=== PATIENT | male | born 1965 | race Caucasian/White ===

== ENCOUNTER 2017-09-02 07:10 | Emergency (ER) | payer SELFPAY ==
--- NOTE | 2017-09-02 08:10 | C.PDOC ---
History Of Present Illness 51 y/o male presents to ED with complaints of epigastric pain since 4am this morning. Pt describes the pain as "inflammation". Pain was intermittent. Patient denies nausea, vomiting, diarrhea, fever or any other complaints at this time. Pt denies any chest pain or sob. Normal BM. He took unknown pain medication without relief. Pt has had the same symptoms in the past and was diagnosed with gallstones via ultasound. Time Seen by Provider: 09/02/17 07:32 Chief Complaint (Nursing): Abdominal Pain History Per: Patient, Electro Mechanic History/Exam Limitations: no limitations Onset/Duration Of Symptoms: Days Current Symptoms Are (Timing): Still Present Location Of Pain/Discomfort: Epigastric Past Medical History Reviewed: Historical Data, Nursing Documentation, Vital Signs Vital Signs: Last Vital Signs Temp 98.2 F 09/02/17 11:10 Pulse 63 09/02/17 11:10 Resp 20 09/02/17 11:10 BP 103/50 L 09/02/17 11:10 Pulse Ox 98 09/02/17 11:10 - Medical History PMH: Pancreatitis Surgical History: No Surg Hx Family History: States: No Known Family Hx - Social History Hx Alcohol Use: Yes Hx Substance Use: No Review Of Systems Constitutional: Negative for: Fever, Chills Gastrointestinal: Positive for: Abdominal Pain. Negative for: Nausea, Vomiting , Diarrhea Musculoskeletal: Negative for: Back Pain Physical Exam - Physical Exam Appears: Non-toxic, No Acute Distress Skin: Warm, Dry, No Rash Head: Atraumatic, Normacephalic Eye(s): bilateral: Normal Inspection, EOMI Nose: Normal Oral Mucosa: Moist Neck: Normal ROM, Supple Chest: Symmetrical, No Tenderness Cardiovascular: Rhythm Regular Respiratory: Normal Breath Sounds, No Accessory Muscle Use, No Rales, No Rhonchi , No Wheezing Gastrointestinal/Abdominal: Soft, Tenderness (Epigastric), No Guarding, No Rebound Back: No CVA Tenderness, No Vertebral Tenderness Extremity: Normal ROM Neurological/Psych: Oriented x3, Normal Speech, Normal Cognition ED Course And Treatment - Laboratory Results Result Diagrams: 09/02/17 08:17 09/02/17 08:17 ECG: Interpreted By Me, Viewed By Me ECG Rhythm: Sinus Rhythm Rate From EC (BPM) O2 Sat by Pulse Oximetry: 100 (RA) Pulse Ox Interpretation: Normal - CT Scan/US Abd US Other Rad Studies (CT/US): Read By Radiologist, Radiology Report Reviewed CT/US Interpretation: HISTORY: h/o gall stones, pain. COMPARISON: None available. TECHNIQUE: Sonographic evaluation of the right upper quadrant of the abdomen. FINDINGS: LIVER: Measures 13.8 cm in length and appears unremarkable. No focal hepatic mass identified. The main portal vein appears patent with normal directional flow. No intrahepatic bile duct dilatation. GALLBLADDER: Gallstones with immobile stone at the gallbladder neck. No gallbladder wall thickening or pericholecystic edema. Negative sonographic Buckley's sign as assessed by the therapist's assistant. COMMON BILE DUCT: Measures 5 mm. PANCREAS: Not well-visualized. RIGHT KIDNEY: Measures 10.7 x 4.8 x 5.5 cm. No obstructing calculus or hydronephrosis identified. AORTA: Limited visualization appears grossly unremarkable. IVC: Limited visualization appears grossly unremarkable. OTHER FINDINGS: None . IMPRESSION: Gallstones with immobile stone at the gallbladder neck. No evidence of gallbladder wall thickening or pericholecystic edema. Negative sonographic Buckley's sign as assessed by the therapist's assistant. Progress Note: ECG, Pepcid, Toradol, Blood work ordered. On re evaluation, pt states he feels better and does not have anymore pain. Patient is resting comfortably, abdomen remains soft, and patient is tolerating PO. Discussed the results of the reading, pt notes he had similar ultrasoudn reading previously. Discussed ERCP and GI evaluation. Instructed to follow up with clinic for further evaluation. Traslator used to ensure understanding. Disposition - Disposition Referrals: [facility] [Outside] Anjel Gillespie MD [Staff Provider] - Disposition: HOME/ ROUTINE Disposition Time: 10:58 Condition: STABLE Additional Instructions: Vaya a bedoya mdico o la clnica en 1-3 kaminski sin falta, para mas evaluacin. [place] los medicamentos anuapm indicado. Volver a la jose guadalupe de emergencia en cualquier momento si los sntomas persisten o empeoran. Instructions: Gallstones (ED) Forms: [employer] (Slovak) Print Language: FIJIAN - Clinical Impression Clinical Impression: Cholelithiasis - PA / CELLULAR EQUIPMENT INSTALLER / Resident Statement MD/DO has reviewed & agrees with the documentation as recorded. - Scribe Statement The provider has reviewed the documentation as recorded by the Scribramu Fermin All medical record entries made by the Boibramu were at my direction and personally dictated by me. I have reviewed the chart and agree that the record accurately reflects my personal performance of the history, physical exam, medical decision making, and the department course for this patient. I have also personally directed, reviewed, and agree with the discharge instructions and disposition.
[2017-09-02 08:22] LABS: BASO % 0.4 % (0.0-2.0); EOS % 0.1 % (0.0-4.0); HEMOGLOBIN 13.3 g/dL (12.0-18.0); LYMPH # 0.8 K/uL (1.0-4.3); LYMPH % 12.5 % (20.0-40.0); MEAN CELL VOLUME 92.4 fL (80.0-94.0); MEAN CORPUSCULAR HEMOGLOBIN 32.9 pg (27.0-31.0); MEAN CORPUSCULAR HGB CONC 35.6 g/dL (33.0-37.0); MEAN PLATELET VOLUME 9.7 fL (7.2-11.7); MONO # 0.5 K/uL (0.0-0.8); NEUT # 5.1 K/uL (1.8-7.0); RBC 4.04 Mil/uL (4.40-5.90); RED CELL DISTRIBUTION WIDTH 12.6 % (11.5-14.5); WHITE BLOOD COUNT 6.5 K/uL (4.8-10.8)
[2017-09-02 08:35] LABS: ALB/GLOB RATIO 1.1 (1.0-2.1); ALT/SGPT 33 U/L (21-72); AST/SGOT 34 U/L (17-59); BLOOD UREA NITROGEN 12 mg/dL (9-20); GFR AFRICAN-AMERICAN > 60; GFR NON-AFRICAN AMERICAN > 60; LIPASE 57 U/L (23-300)
[2017-09-02 08:46] LABS: CK-MB 0.56 ng/mL (0.0-3.38)
--- NOTE | 2017-09-02 09:48 | RAD ---
PROCEDURE: CHEST RADIOGRAPH, 1 VIEW HISTORY: SOB COMPARISON: None available. FINDINGS: LUNGS: Clear. PLEURA: No pneumothorax or pleural fluid seen. CARDIOVASCULAR: Normal. OSSEOUS STRUCTURES: No significant abnormalities. VISUALIZED UPPER ABDOMEN: Normal. OTHER FINDINGS: None. IMPRESSION: No active disease.
--- NOTE | 2017-09-02 10:16 | US ---
HISTORY: h/o gall stones, pain COMPARISON: None available. TECHNIQUE: Sonographic evaluation of the right upper quadrant of the abdomen. FINDINGS: LIVER: Measures 13.8 cm in length and appears unremarkable. No focal hepatic mass identified. The main portal vein appears patent with normal directional flow. No intrahepatic bile duct dilatation. GALLBLADDER: Gallstones with immobile stone at the gallbladder neck. No gallbladder wall thickening or pericholecystic edema. Negative sonographic Buckley's sign as assessed by the timber management technician. COMMON BILE DUCT: Measures 5 mm. PANCREAS: Not well-visualized. RIGHT KIDNEY: Measures 10.7 x 4.8 x 5.5 cm. No obstructing calculus or hydronephrosis identified. AORTA: Limited visualization appears grossly unremarkable. IVC: Limited visualization appears grossly unremarkable. OTHER FINDINGS: None . IMPRESSION: Gallstones with immobile stone at the gallbladder neck. No evidence of gallbladder wall thickening or pericholecystic edema. Negative sonographic Buckley's sign as assessed by the timber management technician.
[2017-09-02 11:11] VITALS: BP 103/50; PULSE 63; RESP 20; TEMP 98.2
[2017-09-02 11:21] VITALS: O2SAT 100
--- NOTE | 2017-09-05 12:25 | CARD ---
APPROVED REPORT EKG Measurement Heart [id number] DC [id number] <Conclusion> Normal sinus rhythm Normal ECG
== END 2017-09-02 11:11 | disposition home or self-care (01) ==
LOC: C.ER 07:10
DX: K80.20 Calculus of gallbladder without cholecystitis without obstruction (principal)
CPT/HCPCS: 71045; 76705; 80053; 82550; 82553; 83690; 84484; 85025; 96374; 96375; 99284; J1885

== ENCOUNTER 2017-12-06 07:05 | Emergency (ER) | payer OTHER ==
[2017-12-06 07:39] VITALS: RESP 18
[2017-12-06] MEDS ORDERED: Sodium Chloride 0.9% 1,000 ML IV ONE (07:56)
[2017-12-06] MEDS ORDERED: Sodium Chloride 0.9% 1,000 ML ONE (08:26)
[2017-12-06 08:47] LABS: BASO % 0.3 % (0.0-2.0); HEMOGLOBIN 14.4 g/dL (12.0-18.0); LYMPH # 0.6 K/uL (1.0-4.3); LYMPH % 5.1 % (20.0-40.0); MEAN CELL VOLUME 93.2 fL (80.0-94.0); MEAN CORPUSCULAR HEMOGLOBIN 32.6 pg (27.0-31.0); MEAN PLATELET VOLUME 10.1 fL (7.2-11.7); MONO # 0.3 K/uL (0.0-0.8); MONO % 2.5 % (0.0-10.0); NEUT # 11.5 K/uL (1.8-7.0); NEUT % 92.1 % (50.0-75.0); PLATELET COUNT 256 K/uL (130-400); RBC 4.42 Mil/uL (4.40-5.90)
[2017-12-06 08:49] LABS: WHITE BLOOD COUNT 12.4 K/uL (4.8-10.8)
[2017-12-06 08:57] LABS: URINE BILIRUBIN NEGATIVE (NEGATIVE); URINE BLOOD 2+ (NEGATIVE); URINE CLARITY Hazy (Clear); URINE COLOR Yellow (YELLOW); URINE GLUCOSE (UA) 1+ mg/dL (Normal); URINE LEUKOCYTE ESTERASE NEG Leu/uL (Negative); URINE PROTEIN 2+ mg/dL (NEGATIVE)
[2017-12-06 09:02] LABS: ALB/GLOB RATIO 1.1 (1.0-2.1); ALBUMIN 4.3 g/dL (3.5-5.0); ALT/SGPT 13 U/L (21-72); AMYLASE 305 U/L (30-110); AST/SGOT 37 U/L (17-59); BLOOD UREA NITROGEN 11 mg/dL (9-20); CALCIUM 8.3 mg/dl (8.6-10.4); GFR AFRICAN-AMERICAN > 60; GFR NON-AFRICAN AMERICAN > 60; LIPASE 37 U/L (23-300)
[2017-12-06 09:24] LABS: BANDS 3 % (0-2); LYMPHOCYTE 4 % (20-40); MONOCYTE 1 % (0-10); NEUTROPHIL 92 % (50-75); TOTAL CELLS COUNTED 100
[2017-12-06 09:25] LABS: PLATELET ESTIMATE NORMAL (NORMAL)
--- NOTE | 2017-12-06 09:43 | C.PDOC ---
History Of Present Illness 52 year old male, with PMHx of gallstones, presents to ED for evaluation of RUQ abdominal pain described as colic pain that developed gradually since midnight. Notes that pain is localized in the RUQ with associated nausea. Pt reports having similar symptoms in the past. Otherwise, denies fever, chills, chest pain , shortness of breath, vomiting, diarrhea, back pain, or UTI symptoms. Time Seen by Provider: 12/06/17 07:39 Chief Complaint (Nursing): Abdominal Pain History Per: Patient History/Exam Limitations: no limitations Onset/Duration Of Symptoms: Days Current Symptoms Are (Timing): Still Present Location Of Pain/Discomfort: RUQ Radiation Of Pain To:: None Quality Of Discomfort: "Pain", Other (colic) Associated Symptoms: Nausea. denies: Fever, Chills, Vomiting, Diarrhea, Loss Of Appetite, Back Pain, Chest Pain, Constipation, Urinary Symptoms Exacerbating Factors: None Alleviating Factors: None Recent travel outside of the [place]: No Additional History Per: Patient Past Medical History Reviewed: Historical Data, Nursing Documentation, Vital Signs Vital Signs: Last Vital Signs Temp 98.5 F 12/06/17 10:15 Pulse 64 12/06/17 10:15 Resp 18 12/06/17 10:15 BP 108/66 12/06/17 10:15 Pulse Ox 98 12/06/17 10:15 - Medical History PMH: Gall Bladder Disease, Pancreatitis Family History: States: Unknown Family Hx - Social History Hx Alcohol Use: Yes Hx Substance Use: No Review Of Systems Except As Marked, All Systems Reviewed And Found Negative. Constitutional: Negative for: Fever, Chills Cardiovascular: Negative for: Chest Pain, Palpitations Respiratory: Negative for: Shortness of Breath, Pleuritic Pain Gastrointestinal: Positive for: Nausea, Abdominal Pain. Negative for: Vomiting , Diarrhea, Constipation Genitourinary: Negative for: Dysuria, Frequency, Hematuria Musculoskeletal: Negative for: Back Pain Physical Exam - Physical Exam Appears: Well, Non-toxic, No Acute Distress Skin: Normal Color, Warm, Dry, No Rash Head: Normacephalic Eye(s): bilateral: PERRL Nose: No Flaring, No Discharge Oral Mucosa: Moist, No Drooling Throat: No Drooling Neck: Trachea Midline, Supple Cardiovascular: Rhythm Regular, No Murmur, No JVD Respiratory: No Accessory Muscle Use, No Rales, No Rhonchi, No Wheezing Gastrointestinal/Abdominal: Soft, Tenderness (mild RUQ), No Distention, No Guarding, No Rebound Back: No CVA Tenderness Extremity: Normal ROM, No Deformity, No Swelling Neurological/Psych: Oriented x3, Normal Speech ED Course And Treatment - Laboratory Results Result Diagrams: 12/06/17 08:39 12/06/17 08:39 Lab Interpretation: No Acute Changes O2 Sat by Pulse Oximetry: 100 (RA) Pulse Ox Interpretation: Normal - CT Scan/US GAllbladder US Other Rad Studies (CT/US): Radiology Report Reviewed CT/US Interpretation: Funeral Arrangement Director : Nicholas Blount MD. Approver2 : Report Date : 12/06/2017 09:15:36. My Comment : . HISTORY: RUQ pain. COMPARISON : None. TECHNIQUE: Sonographic evaluation of the right upper quadrant of the abdomen. FINDINGS: LIVER: Measures 13.6 cm in length. Hepatic parenchyma is remarkable only for occasional punctate hyperechoic foci at the right lobes is suggestive of tiny granulomata. No intrahepatic bile duct dilatation. GALLBLADDER: Cholelithiasis identified within a mildly distended gallbladder which is otherwise unremarkable appearing. No reported sonographic Buckley sign. COMMON BILE DUCT: Measures 4.5 mm. No stones. No dilatation. PANCREAS: The tail of the pancreas is obscured by overlying bowel gas with remainder unremarkable. RIGHT KIDNEY: Measures 11.4 cm in length. Normal echogenicity. No calculus, mass, or hydronephrosis. AORTA: No aneurysmal dilatation. IVC: Unremarkable. OTHER FINDINGS: None . IMPRESSION: Cholelithiasis. Normal CBD caliber. Questionable right lobe liver. Partial imaging of the pancreas. CT abd/pelvis Other Rad Studies (CT/US): Radiology Report Reviewed CT/US Interpretation: reator : Nicholas Blount MD. Dictator : Nicholas Blount MD. Certified Flex Endoscope Reprocessor : Funeral Arrangement Director : Nicholas Blount MD. Approver2 : Report Date : 12/06/2017 10:19:46. My Comment : . PROCEDURE: CT Abdomen and Pelvis without intravenous contrast. HISTORY: Right flank. COMPARISON: None. TECHNIQUE: Helical CT of the abdomen and pelvis was performed without oral or intravenous contrast as per referring physician request. Contrast dose : None. Radiation dose: Total exam DLP = 338.39 mGy-cm. This CT exam was performed using one or more of the following dose reduction techniques: Automated exposure control, adjustment of the mA and/or kV according to patient size, and/or use of iterative reconstruction technique. FINDINGS: LOWER THORAX : Unremarkable. LIVER: Unremarkable. No gross lesion or ductal dilatation. GALLBLADDER AND BILE DUCTS: Cholelithiasis. PANCREAS: Unremarkable. No gross lesion or ductal dilatation. SPLEEN: Unremarkable. ADRENALS: Unremarkable. No mass. KIDNEYS AND URETERS: Unremarkable. No hydronephrosis. No solid mass. VASCULATURE: Unremarkable. No aortic aneurysm. BOWEL: Stomach is collapsed. Lack of oral contrast as well as intravenous contrast agents limits the evaluation of the gastrointestinal tract. There is a nonspecific pattern of limited distention of a proximal small bowel loop of the left upper quadrant with remainder of small bowel diminished in caliber or completely collapsed. Gas and stool are seen scattered throughout the large bowel. This is nonspecifically demonstrative of a bowel obstruction but is nonspecific nevertheless. APPENDIX: Unremarkable. Normal appendix. PERITONEUM: Unremarkable. No free fluid. No free air. LYMPH NODES: Unremarkable. No enlarged lymph nodes. BLADDER: Unremarkable. REPRODUCTIVE: Unremarkable. BONES: No acute fracture. OTHER FINDINGS: None. IMPRESSION: Nonspecific bowel gas pattern with a solitary loop of bowel mildly distended in the left upper quadrant remaining small bowel lesser in caliber or collapsed. Gas and stool is seen throughout the colon. No measured edema, ascites or free intrarenal gas. Cholelithiasis. Progress Note: Blood work, urinalysis, Abd & Pelvis CT, gallbladder ultrasound ordered and reviewed. Pt was given Zofran, Toradol, and IV fluids. On re- evaluation, pt is afebrile, hemodynamicaly stable. Non-toxic. Tolerate Po well in Ed. ENT: no acute findings. Lungs: CTA B/L, BS equal B/L. Abd: benign, (- ) guarding, (-) rebound. back: (-) CVA tenderness. Neurologicaly intact. Blood work review, mild leukocytosis w/left shift, mild hyeprglycemia, high amylase. UA (+) RBC. Gallbladder US results review (+) stones w/mildly distended wall, (-) Buckley sign. CT abd/plevis- benign. Pt has clinical findings c/w RUQ pain r/o cholelithiasis, r/o early pancreatitis. Pt advised on course of ds. rfef. to f/u with PMD, Surgery in 2-3 days for re-eval. return if any worsening or new changes. Disposition Counseled Patient/Family Regarding: Studies Performed, Diagnosis, Need For Followup, Rx Given - Disposition Referrals: [facility] [Outside] Allan Silva MD [Staff Provider] - Disposition: HOME/ ROUTINE Disposition Time: 10:01 Condition: STABLE Additional Instructions: Avoid fat, fried, spicy food Follow up with PMD, Surgery in 2-3 days for re-evaluation. return to ED if any worsening or new changes. Prescriptions: Ciprofloxacin [Cipro] 1 tab PO BID #14 tab traMADol [Ultram] 50 mg PO TID #7 tab Instructions: Gallstones (DC) Forms: [employer] (Turkish) Print Language: BULGARIAN - Clinical Impression Clinical Impression: Cholelithiasis - PA / CONTRACTING MANAGER / Resident Statement MD/DO has reviewed & agrees with the documentation as recorded. - Scribe Statement The provider has reviewed the documentation as recorded by the Boibramu Melo All medical record entries made by the Bryce were at my direction and personally dictated by me. I have reviewed the chart and agree that the record accurately reflects my personal performance of the history, physical exam, medical decision making, and the department course for this patient. I have also personally directed, reviewed, and agree with the discharge instructions and disposition.
[2017-12-06 10:16] VITALS: BP 108/66; PULSE 64; TEMP 98.5
--- NOTE | 2017-12-06 10:21 | CT ---
PROCEDURE: CT Abdomen and Pelvis without intravenous contrast HISTORY: Right flank COMPARISON: None. TECHNIQUE: Helical CT of the abdomen and pelvis was performed without oral or intravenous contrast as per referring physician request. Contrast dose: None Radiation dose: Total exam DLP = 338.39 mGy-cm. This CT exam was performed using one or more of the following dose reduction techniques: Automated exposure control, adjustment of the mA and/or kV according to patient size, and/or use of iterative reconstruction technique. FINDINGS: LOWER THORAX: Unremarkable. LIVER: Unremarkable. No gross lesion or ductal dilatation. GALLBLADDER AND BILE DUCTS: Cholelithiasis. PANCREAS: Unremarkable. No gross lesion or ductal dilatation. SPLEEN: Unremarkable. ADRENALS: Unremarkable. No mass. KIDNEYS AND URETERS: Unremarkable. No hydronephrosis. No solid mass. VASCULATURE: Unremarkable. No aortic aneurysm. BOWEL: Stomach is collapsed. Lack of oral contrast as well as intravenous contrast agents limits the evaluation of the gastrointestinal tract. There is a nonspecific pattern of limited distention of a proximal small bowel loop of the left upper quadrant with remainder of small bowel diminished in caliber or completely collapsed. Gas and stool are seen scattered throughout the large bowel. This is nonspecifically demonstrative of a bowel obstruction but is nonspecific nevertheless. APPENDIX: Unremarkable. Normal appendix. PERITONEUM: Unremarkable. No free fluid. No free air. LYMPH NODES: Unremarkable. No enlarged lymph nodes. BLADDER: Unremarkable. REPRODUCTIVE: Unremarkable. BONES: No acute fracture. OTHER FINDINGS: None. IMPRESSION: Nonspecific bowel gas pattern with a solitary loop of bowel mildly distended in the left upper quadrant remaining small bowel lesser in caliber or collapsed. Gas and stool is seen throughout the colon. No measured edema, ascites or free intrarenal gas. Cholelithiasis.
[2017-12-06 10:31] VITALS: O2SAT 100
== END 2017-12-06 10:50 | disposition home or self-care (01) ==
LOC: C.ER 07:05
DX: K80.20 Calculus of gallbladder without cholecystitis without obstruction (principal)
CPT/HCPCS: 74176; 76705; 80053; 81001; 82150; 83690; 85025; 96361; 96374; 96375; 99285; J1885; J2405; J7040

== ENCOUNTER 2018-03-02 06:23 | Day surgery (SDC) | payer OTHER ==
[2018-03-02] MEDS ORDERED: Bupivacaine 0.25% 20 ML INJ IJ ONE (07:22)
[2018-03-02] MEDS ORDERED: ceFAZolin IV 1 gm in Dextrose 1 GM/50 ML BAG IVPB ONE (07:22)
[2018-03-02] MEDS ORDERED: Lidocaine Hydrochloride 5 ML INJ ONE ×2 (07:24)
[2018-03-02] MEDS ORDERED: Midazolam 2 MG/2 ML VIAL ONE (07:34)
[2018-03-02] MEDS ORDERED: Propofol 10 mg/ml Inj (20 ML) ONE (07:35)
[2018-03-02] MEDS ORDERED: Rocuronium 10 mg/ml (5 ml) ONE ×2 (07:36→08:22)
[2018-03-02] MEDS ORDERED: Lidocaine 4% (Laryng-O-Jet) Kit MM ONE (07:38)
[2018-03-02] MEDS ORDERED: Neostigmine Methylsulfate 3mg/3ml Syringe IV ONE (08:27)
[2018-03-02] MEDS ORDERED: ePHEDrine 50 mg/ml Inj ONE (08:30)
[2018-03-02] MEDS ORDERED: HYDROmorphone 0.5 mg/0.5 ml ISec IVP PRN (10:27)
--- NOTE | 2018-03-02 10:30 | PCM.SURG1 ---
Surgeon's Initial Post Op Note - Surgeon's Notes Surgeon: Kameron Coin Machine Operator: [place] PGY4, Carlyle SALGADO Type of Anesthesia: General LMA, Local Pre-Operative Diagnosis: Cholecystitis Operative Findings: chronically inflamed gallbladder, umbilical hernia Post-Operative Diagnosis: cholecystitis, umbilical hernia Operation Performed: robotic assisted cholecystectomy Specimen/Specimens Removed: gallbladder Estimated Blood Loss: EBL {In ML}: 10 Blood Products Given: N/A Drains Used: No Drains Post-Op Condition: Good Date of Surgery/Procedure: 03/02/18 Time of Surgery/Procedure: 10:29
[2018-03-02 11:06] VITALS: O2SAT 100
[2018-03-02 12:03] VITALS: RESP 18
[2018-03-02 13:00] VITALS: BP 118/76; PULSE 71; TEMP 97.6
--- NOTE | 2018-03-02 15:12 | PCM.OP ---
Operative Report - Operative Report Date of Surgery/Procedure: 03/02/18 Time of Surgery/Procedure: 08:00 Surgeon: Phyllis Melo MD Digital Media Specialist: Alexis Meek DO (PGY4 resident)[place] Anesthesia/Sedation: General endotracheal; 1% lidocaine + 0.25% Marcain mix local anesthesia Pre-Operative Diagnosis: Recurrent Symptomatic cholelithiasis. Umbilical hernia Post-Operative Diagnosis: Recurrent Symptomatic cholelithiasis. Chronic cholecystitis. Umbilical hernia Indication for Surgery: This is a 52-year-old male without any prior surgical history with recurrent symptomatic cholelithiasis. Details of HPI in clinical chart. Taken to the operating room for laparoscopic, robotic assisted cholecystectomy. Patient understands the risks and benefits of the procedure as documented in the clinic chart but specifically risk of cystic duct leak and common bile duct injury and has consented to the procedure. Operative Findings: Fluid filled gallbladder with small-moderate sized stone in neck, mobile. Chronic inflammation of galbladder neck. Cystic duct and CBD bile flow confirmed using Firefly fluorescence prior to clipping and dividing, after critical view of safety acheived. Clips in place on cystic duct and cystic artery at end of case without evidence of bleeding or bile leak. 5mm fat containing umbilical hernia Procedure/Operation Description: PROCEDURE PERFORMED: 1. Robotic Assisted, Laparoscopic Cholecystectomy with Intraoperative Indigocyanine florescence. 2. Primary umbilical hernia repair (as part of closure). DETAILS OF OPERATION: The patient was given a preoperative dose of Ancef 2g 20 minutes before the incision. SCD boots were placed for DVT prophylaxis. The patient voided in pre- op immediately prior to surgery and no freeman was placed. An orogastric tube placed in order to empty the stomach after the induction of general anesthesia. Upper body warmer placed. A timeout was performed prior to incision. The abdomen was prepped and draped in sterile fashion. All skin incisions were made using an 11-blade scalpel after the injection of local anesthesia. Abdominal entry was gained using an 8mm optically viewing trocar with A 5mm 0-degree laparoscope placed in the left upper quadrant. All layers of the abdominal wall were seen and peritoneal entry directly visualized. The abdomen was then insufflated with C02 pneumoperitoneum to 15mmhg. 5mm 0-degree laparoscope was then inserted and the abdomen was generally inspected. There were no signs of injury from initial entry and there was not found to be any additional signs of pathology. Next 3 additional 8mm ports were placed under direct vision. Given the patient had a small umbilical hernia, a vertical skin incision was made at the base of the umbilicus and one 8mm port inserted throught the hernia defect. Two additional ports were then placed in the In the right mid abdomen, medial and lateral just above the level of umbilicus. The patient was placed in slight reverse trendelberg and right side up. A face protecting foam was placed over the patient's face and the robot was docked to the patient. An 8mm 30 degree robotic camera was first inserted and robotic instruments were then inserted under direct visualization. A prograsp retractor in the right lateral port, fenestrated bipolar in right medial port, and monopolar hook cautery in the left abdominal port. . The fundus of the gallbladder was identified beneath the liver edge and retracted to the right upper quadrant with the prograsp grasper and locked in place. The neck of the gallbladder was visualized. There were minimal omental adhesions to the gallbladder that were taken down with a cominbation of blunt dissection and monopolar hook cautery. The peritoneal attachments from the lateral portion of the gallbladder/cystic duct junction were gently dissected and divided to open up the [place]. The [place] was then dissected up onto the liver bed posterior to the gallbladder in order to ensure that this was the cystic duct and not tenting of the common bile duct. The peritoneal attachments on the medial portion of the gallbladder going up to the side of the liver were taken down. This was continued until the proximal gallbladder was dissected off the cystic plate. The critical view was obtained and confirmed on both anterior and posterior views. Photodocumentation was obtained and a copy placed in the patients chart. The cystic duct and cystic artery were then doubly clipped and ligated and divided using scissors. The gallbladder was dissected free from the liver bed using electrocautery and placed this in an endo catch bag. Once this was done, the abdomen was reinspected. The clips were re-insected and in good position on the cystic artery and duct stumps. Hemostassis on the liver bed was achieved using hook cautery. Robotic instruments were withdrawn under direct vision and the robot was then undocked from the patient. Robotic Camera was resinserted throuhg the left abdominal port and gallbladder specimen was withdrawn through the umbilical port. Once this was done, the remaining ports were removed from the abdomen and the abdomen was desufflated with air. The umbilical port was closed with a [id number] 0-Vicryl suture and the skin incisions were closed with 4-0 monocryl sutures and finally dermabond. The patient tolerated the procedure well and was extubated in the operating room and brought to recovery in stable condition. I was present for the entirety of the operation. All sponge, needle and instrument counts were correct. Estimated Blood Loss: 20mL Complications: none Specimen: Gallbladder Discharge & Condition: recovery in stable condition.
== END 2018-03-02 13:10 | disposition home or self-care (01) ==
LOC: C.SDS 06:23
PROVIDERS: ATTEND Surgery
DX: K80.10 Calculus of gallbladder with chronic cholecystitis without obstruction (principal); K42.9 Umbilical hernia without obstruction or gangrene
CPT/HCPCS: 47562; 49585; 88304; J0690; J1885; J2001; J2250; J2405; J2704; J2710; J2765; J3010; J7030